=== PATIENT | female | born 1985 | race Caucasian/White ===

== ENCOUNTER 2022-02-27 08:01 | Outpatient (CLI) | payer OTHER, SELFPAY ==
[2022-02-27 08:37] LABS: Potassium 4.4 mmol/L (3.4-5.0)
[2022-02-27 08:39] LABS: Anion Gap 13 mmol/L (8-16); Blood Urea Nitrogen 11 mg/dL (7-17); Carbon Dioxide 24 mmol/L (22-30); Chloride 102 mmol/L (98-107); Estimated Glomerular Filt Rate > 60; Glucose 135 mg/dL (65-110); Sodium 139 mmol/L (137-145)
== END 2022-02-27 08:02 | disposition home or self-care (01) ==
LOC: ANHSURGERY 08:08
PROVIDERS: Anesthesiology; PCP Nurse Practitioner Family; Visit Provider Obstetrics & Gynecology
DX: E11.9 Type 2 diabetes mellitus without complications (principal); Z01.818 Encounter for other preprocedural examination
CPT/HCPCS: 36415; 80048

== ENCOUNTER 2022-03-02 02:46 | Day surgery (SDC) | payer OTHER, SELFPAY ==
--- NOTE | 2022-02-23 14:32 | PC.NURSE ---
Report to the Outpatient Waiting Room, entrance under the green pavilion located off [facility], at time _0930_ on date _03/02/22__. Planned Procedure Time: _11:30_. Time changes happen often and if your time is changed the preop area will call you the afternoon before. - You and your visitor will be asked to self-screen and do not enter if you have any COVID symptoms. - We encourage only one visitor and NO visitors under age 16 are allowed at this time. Your visitor will receive communication by the phone number that is given day of service. - The patient visitor is requested to social distance or may leave the building when not with patient due to restrictions. - A mask is required within the hospital. Patients may have clear liquids (water, carbonated beverages, clear teas, apple juice) until 3 hours prior to surgery with a maximum of 20 ounces. (stop by 8:30 am) - No food from midnight until time of surgery - Infants may have breast milk until 4 hours before surgery, formula 6 hours prior to surgery. - Children will be allowed to drink immediately following surgery. If applicable, please bring a bottle or sippy cup to assist with drinking. Juice, water, soda, and popsicles are readily available. For infants on formula, please bring formula the day of surgery. Pacifiers are allowed. Take the following medications with a SIP of water the morning of surgery: _none Medications to discontinue per physician __supplements 3 days prior Date to take last dose Please no make-up, nail thai, hairspray, perfume, deodorant, or body powder the day of surgery. No jewelry (including any body piercings) or valuables the day of surgery, leave them at home. Please take a shower or bath the night before, or the morning of, surgery with an antibacterial soap. Wear comfortable, loose fitting clothing. Children are encouraged to wear pajamas. - Jewelry must be removed prior to entering the operating room. Rings and piercings that are not removed may be cut off. - The hospital will not accept responsibility for valuables. - Please leave all valuables, including medications, at home the day of surgery. If you are going home after surgery, a licensed pile driver operator helper must drive you home. - NO public transportation without another adult. - We recommend that an adult stay with you for 24 hours following discharge. - We also recommend that you do not drive, make important decision, drink alcoholic beverages, or take any drugs that were not prescribed by your health care provider for at least 24 hours after your discharge time. For Pediatric surgeries, we recommend two adults accompany the child home. Follow any additional instructions given to you from your surgeon. If you or anyone in your household have experienced Covid symptoms in the past week, please notify your surgeon or the nurse liaison at the phone number below for possible testing. Telephone instructions given to _patient__and asked if any additional questions and then verbalized understanding. Patient advised to call surgeon office or pre surgery nurse liaison [phone] if any additional questions.
[2022-02-23 14:52] VITALS: BMI 35.9
--- NOTE | 2022-03-01 08:23 | P.HP_ITS ---
H&P: HPI History of Present Illness Date/Time: 03/01/22 08:23 Chief Complaint: Severe cervical dysplasia Narrative: Sienna is a 36yo [id number], LMP 02/04/22 who presented as a new patient in clinic for colpo. She has a HGSIL/HPV + pap. Colpo was performed and showed PHOENIX 3 on multiple ectocervical biopsies as well as on the ECC. She reports her cycles are very irregular and have been for the last couple years since having her tubes tied. She reports having a pap smear in 2019 and thinks it was normal, but then never followed up with Dr. Sood as she was in [place] [facility]. Review of Systems Review of Systems: All systems reviewed & are unremarkable except as noted in HPI and below PMFSH Past Medical History Medical History Ovarian cyst Pulmonary embolism Recent surgical procedure on lower extremity 13 surgeries Surgical History Surgical History History of tubal ligation Family History Family History Other Hypertension Thyroid disease Social History Social History Smoking status: Never smoker Alcohol intake: never Substance use: never Substance use type: does not use Gender identity (if verbalized by the patient): Female Spiritual care concerns: No Meds Home Medications and Allergies Home Medications Medication Instructions Recorded Confirmed Type metformin 500 mg tablet 500 mg PO DAILY 02/05/22 02/23/22 History Allergies Allergy/AdvReac Type Severity Reaction Status Date / Time azithromycin Allergy Intermediate body aches Verified 02/23/22 14:19 and nodules albuterol AdvReac Mild Other Verified 02/23/22 14:46 Exam Const: General: cooperative, comfortable, no acute distress and obese Resp: Effort & Inspection: normal respiratory effort Cardio: Rate: regular rate GI: Inspection: normal to inspection GI Palp: No abdominal tenderness and Yes Soft to palpation : Other: deferred to OR Skin: General skin exam: normal color Neuro: General: patient oriented x3 Extrem: General: normal to inspection Psych: Appearance: grossly normal Affect: normal affect Attitude: cooperative Assessment and Plan Assessment and plan (1) Cervical intraepithelial neoplasia grade III with severe dysplasia: Code(s): D06.9 - Carcinoma in situ of cervix, unspecified Status: Acute Plan - Proceed with LEEP, top hat, and ECC due to PHOENIX 3 noted on biopsies obtained at 10, 11, 1 o'clock and ECC - Risks and benefits explained in detail
--- NOTE | 2022-03-02 06:55 | WPDHPUPDATE1 ---
History and Physical Update Update Date/Time: 03/02/22 06:55 History and Physical has been reviewed, including an updated exam of the patient. There are NO changes in the patient's condition. Risks, benefits, and alternatives have been discussed and questions answered. Patient agrees to proceed with procedure.
[2022-03-02 09:41] VITALS: BP 138/96; PULSE 91; RESP 18; TEMP 36.3; O2SAT 98
[2022-03-02 10:21] LABS: Glucose Point of Care 118 mg/dl (65-105)
[2022-03-02] MEDS: ACETAMINOPHEN 500 MG TABLET 1000 MG PO (10:30)
[2022-03-02] MEDS: LACTATED RINGERS 1,000 ML 30 ML IV CONT (10:31)
--- NOTE | 2022-03-02 10:49 | P.PNAN_ITS ---
Anes - Initial Pre Proc Eval Procedure: Operation Date: 03/02/22 11:30 Proposed Procedures p Loop Electrical Excision Procedure with Top Hat, Endocervical Curettage - Mary Jo Bhatia MD Date/Time: 03/02/22 10:49 Surgeon: Mary Jo Bhatia MD Pre Op Diagnosis: cervical dysplasia Patient Data Age: 36 Gender: F Height: 1.52 m Weight: 86.2 kg Last Vital Signs Temp 36.3 C L 03/02/22 09:41 Pulse 91 03/02/22 09:41 Resp 18 03/02/22 09:41 BP 138/96 H 03/02/22 09:41 Pulse Ox 98 03/02/22 09:41 O2 Del Method Room Air 03/02/22 09:41 Allergies Allergy/AdvReac Type Severity Reaction Status Date / Time azithromycin Allergy Intermediate body aches Verified 03/02/22 09:38 and nodules albuterol AdvReac Mild Other Verified 03/02/22 09:38 Home Medications Medication Instructions Recorded Confirmed Type metformin 500 mg tablet 500 mg PO DAILY 02/05/22 03/02/22 History Laboratory Tests 03/02/22 10:16 POC Capillary Glucose 118 mg/dl H mg/dl (65-105) Patient hx anesthesia problems: none Family hx anesthesia problems: none Results Review: All pre-operative results and documents have been reviewed as part of the pre- operative evaluation. [facility] Past Medical History Medical History Diabetes Ovarian cyst Pulmonary embolism Recent surgical procedure on lower extremity 13 surgeries Surgical History Surgical History History of tubal ligation Family History Family History Other Hypertension Thyroid disease Social History Social History Smoking status: Never smoker Alcohol intake: never Substance use: never Substance use type: does not use Living arrangements: with family Gender identity (if verbalized by the patient): Female Spiritual care concerns: No Anes - Eval Final PreProcedure Day of Procedure 03/02/22 10:49 Heart: regular rate and rhythm Lungs: decreased breath sounds Airway: Mallampati scale class II Neurological: alert and oriented Last oral intake: >/= 8 hours ASA classification: III Emergent: no Anesthetic plan: proceed Anesthesia type and monitoring: general GIVS and standard monitoring Results Review: All pre-operative results and documents have been reviewed as part of the pre- operative evaluation. Informed Consent: The patient's anesthetic plan and its attendant risks and benefits were discussed with the patient/family/POA. Questions were solicited and answers provided to the satisfaction of the patient/family/POA.
[2022-03-02] MEDS: IODINE/POTASSIUM IODIDE 8 ML SOLUTION TOPICAL (11:51)
[2022-03-02] MEDS: LIDO 2%/EPINEPHRINE 1:100,000 50 ML VIAL 10 ML INFILTRATE (11:51)
[2022-03-02] MEDS: FERRIC SUBSULFATE 8 ML SOLUTION WITH APPLICATOR TOPICAL (11:51)
--- NOTE | 2022-03-02 12:40 | P.OP_ITS ---
Procedure Note - Detailed Date of Procedure 03/02/22 Pre-op Diagnosis Severe cervical dysplasia (PHOENIX 3) Post-op Diagnosis Same Procedure Performed LEEP, top hat, ECC Surgeon Mary Jo Bhatia MD Anesthesia MAC Findings Multiparous cervix with multiple nabothian cysts (ruptured with thick mucus noted). Stay sutures placed at beginning of procedure and 10cc lidocaine with epi injected into the cervix. Lugols applied and no uptake noted from 10- 1o'clock. Top hat split in half so each piece sent separately and marked accordingly. Monsel's solution applied at end of case. Good hemostasis at end of case. Description of Procedure Sienna was taken to the operating room where she was placed under sedation. She was then prepped and draped in the usual sterile fashion in the dorsal lithotomy position with her legs in low Grey stirrups. A time-out was perform ed and no preoperative antibiotics were indicated. A coated speculum was then placed within the vagina where the cervix was easily identified. The cervix was infiltrated using approximately 10 cc of 2% lidocaine with epinephrine. When infiltrating the cervix multiple nabothian cysts were noted and ruptured with thick mucus discharge. Stay sutures were then placed bilaterally using 2-0 Vicryl without complications. The LEEP was performed without complications and marked with a silk suture at 12:00 o'clock. The top hat was then performed. The top hat split into 2 pieces therefore each piece was marked at 12 and 6:00 o'clock respectively. An ECC was then collected. Using the roller ball, the LEEP and top hat beds were made hemostatic using Bovie cautery. Good hemostasis was noted. Monsel's solution was then applied in the LEEP bed for further hemostasis. All instruments were removed from the vagina. Sponge, lap, instrument, and needle counts were correct at the end of procedure. The patient was awoken from anesthesia and taken to recovery in a stable condition with plans of same-day discharge home. Estimated Blood Loss 15 IV Fluids 800 Pathology Yes (Leep (stitch @ 12), top hat x2 (stitch placed at 12 & 6 o'clock -- specimen split in half), ECC) Condition Stable Disposition Same day [facility] Billing Surgery - Charge Forward: Surgery Billing
[2022-03-02 12:44] VITALS: BP 116/69; PULSE 88; RESP 12; O2SAT 100
[2022-03-02 13:07] LABS: Glucose Point of Care 82 mg/dl (65-105)
[2022-03-02 13:10] VITALS: BP 121/82; PULSE 76; RESP 12; O2SAT 100
[2022-03-02 13:40] VITALS: BP 112/84; PULSE 73; RESP 12; O2SAT 100
[2022-03-02 14:02] VITALS: BP 132/90; PULSE 86; RESP 12
== END 2022-03-02 14:05 | disposition home or self-care (01) ==
PROVIDERS: PCP Nurse Practitioner Family; Visit Provider Obstetrics & Gynecology
PROC: 0UBC7ZZ Excision of Cervix, Via Natural or Artificial Opening (ICD-10-PCS; CPT 57522; principal; 2022-03-02 11:30)
DX: D06.1 Carcinoma in situ of exocervix (principal); N88.8 Other specified noninflammatory disorders of cervix uteri; E11.9 Type 2 diabetes mellitus without complications; Z79.84 Long term (current) use of oral hypoglycemic drugs
CPT/HCPCS: 57522; 82948; 88305; 88307; A9270; J2250; J2704; J3010; J7120

== ENCOUNTER 2022-07-07 09:59 | Outpatient (CLI) | payer OTHER, SELFPAY ==
[2022-07-07 11:21] LABS: Hepatitis B Surface Antigen Negative (Negative)
[2022-07-07 11:24] LABS: HIV 1/2 Ab P24 Ag Result Negative (Negative)
[2022-07-07 11:27] LABS: HAV RESULT Negative (Negative); Hepatitis B Core IgM Result Negative (Negative)
[2022-07-07 11:38] LABS: Hepatitis C Virus Antibody Negative (Negative)
[2022-07-08 10:05] LABS: Rapid Plasma Reagin Non-Reactive (NonReactive)
== END 2022-07-07 10:00 | disposition home or self-care (01) ==
LOC: ANHLAB 09:59
PROVIDERS: PCP Nurse Practitioner Family; Visit Provider Student in an Organized Health Care Education/Training Program
DX: Z11.3 Encounter for screening for infections with a predominantly sexual mode of transmission (principal)
CPT/HCPCS: 36415; 80074; 86592; 86695; 86696; 86703; G0432

== ENCOUNTER 2022-07-23 13:22 | Outpatient (CLI) | payer OTHER, SELFPAY ==
[2022-07-23 13:42] LABS: Hematocrit 40.8 % (37.0-47.0); Hemoglobin 13.3 g/dL (12.0-15.0)
[2022-07-23 13:49] LABS: Anion Gap 6 mmol/L (8-16); Blood Urea Nitrogen 11 mg/dL (7-17); Calcium 8.9 mg/dL (8.4-10.2); Carbon Dioxide 28 mmol/L (22-30); Chloride 104 mmol/L (98-107); Estimated Glomerular Filt Rate > 60; Glucose 95 mg/dL (65-110); Potassium 4.1 mmol/L (3.4-5.0); Sodium 138 mmol/L (137-145)
== END 2022-07-23 13:23 | disposition home or self-care (01) ==
LOC: ANHSURGERY 13:26
PROVIDERS: Anesthesiology; PCP Nurse Practitioner Family; Visit Provider Student in an Organized Health Care Education/Training Program
DX: N93.9 Abnormal uterine and vaginal bleeding, unspecified (principal); E11.9 Type 2 diabetes mellitus without complications; Z01.818 Encounter for other preprocedural examination
CPT/HCPCS: 36415; 80048; 85014; 85018

== ENCOUNTER 2022-07-30 01:23 | Day surgery (SDC) | payer OTHER, SELFPAY ==
[2022-07-22 14:50] VITALS: BMI 37.8
--- NOTE | 2022-07-22 14:55 | PC.NURSE ---
Report to the Outpatient Waiting Room, entrance under the green pavilion located off [facility], at time 1:00 on date 07/30/22. Planned Procedure Time: 3:00. Time changes happen often and if your time is changed the preop area will call you the afternoon before. - You and your visitor will be asked to self-screen and do not enter if you have any COVID symptoms. - Only one visitor is requested with a max of two and NO children visitors are allowed at this time. - The patient visitor may be requested to leave or wait in car when not with patient due to distancing restrictions. - A mask is optional within the hospital at this time. Patients may have clear liquids (water, carbonated beverages, clear teas, apple juice) until 3 hours prior to surgery with a maximum of 20 ounces. - No food from midnight until time of surgery Take the following medications with a SIP of water the morning of surgery: NONE DO NOT STOP ANY OF YOUR OTHER PRESCRIPTION MEDICATIONS PRIOR TO SURGERY EXCEPT THE FOLLOWING Medications to discontinue per physician: N/A Date to take last dose: N/A Please no make-up, nail hong konger, hairspray, perfume, deodorant, or body powder the day of surgery. No jewelry (including any body piercings) or valuables the day of surgery, leave them at home. Please take a shower or bath the night before, or the morning of, surgery with an antibacterial soap. Wear comfortable, loose fitting clothing. - Jewelry must be removed prior to entering the operating room. Rings and piercings that are not removed may be cut off. - The hospital will not accept responsibility for valuables. - Please leave all valuables, including medications, at home the day of surgery. If you are going home after surgery, a licensed commercial relief driver must drive you home. - NO public transportation without another adult if you receive anesthesia. - We recommend that an adult stay with you for 24 hours following discharge. - We also recommend that you do not drive, make important decision, drink alcoholic beverages, or take any drugs that were not prescribed by your health care provider for at least 24 hours after your discharge time. Follow any additional instructions given to you from your surgeon. If you or anyone in your household have experienced Covid symptoms in the past week, please notify your surgeon or the nurse liaison at the phone number below for possible testing. Telephone instructions given to PT - LOKI POLK and asked if any additional questions and then verbalized understanding. Patient advised to call surgeon office or pre surgery nurse liaison [phone] if any additional questions.
--- NOTE | 2022-07-30 08:36 | PM.IMHP ---
H&P: HPI History of Present Illness Date/Time: 07/30/22 08:36 Chief Complaint: abnormal uterine bleeding Narrative: 36-year-old female who presents for hysteroscopy, D&C, endometrial ablation for abnormal uterine bleeding. Patient has persistent heavy prolonged bleeding despite progesterone only contraceptives. Patient is status post tubal ligation. She declined any other hormonal contraceptives. Patient has history of PE so was not a candidate for estrogen. Patient elects for surgical management. Review of Systems Cardiovascular: Cardiovascular: Denies chest pain, Denies leg edema, Denies palpitations, Denies dyspnea and Denies dyspnea on exertion Respiratory: Respiratory: Denies cough, Denies dyspnea and Denies dyspnea on exertion Gastrointestinal: Gastrointestinal: Denies abdominal pain, Denies constipation, Denies diarrhea, Denies nausea and Denies vomiting Genitourinary: Genitourinary: Denies hematuria, Denies urinary frequency, Denies dysuria, Denies pelvic pain, Denies urinary incontinence and Denies vaginal discharge Neurologic: Reports system reviewed and no additional complaints, except as documented Psychiatric: Psychiatric: Reports no additional psychiatric complaints Endocrine: Endocrine: Denies palpitations [facility] Past Medical History Medical History (Updated 07/10/22 @ 10:23 by Mariama Merritt MA) Diabetes 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 Gonorrhea Ovarian cyst Pulmonary embolism Recent surgical procedure on lower extremity 13 surgeries Screen for STD (sexually transmitted disease) Surgical History Surgical History H/O LEEP PHOENIX 3 all margins are clear History of tubal ligation (03/02/22) Family History Family History Other Hypertension Thyroid disease Social History Social History Smoking status: Never smoker Alcohol intake: never Substance use: never Substance use type: does not use Living arrangements: with family Occupation/Education: occupation Gender identity (if verbalized by the patient): Female Spiritual care concerns: No Meds Home Medications and Allergies Home Medications Medication Instructions Recorded Confirmed Type metformin 500 mg tablet 500 mg PO DAILY 02/05/22 07/22/22 History norethindrone (contraceptive) 0.35 0.35 mg PO DAILY #84 tabs 06/18/22 07/22/22 Rx mg tablet dulaglutide 0.75 mg/0.5 mL 0.75 mg subcut WEEKLY 07/06/22 07/22/22 History subcutaneous pen injector (Trulicity) Allergies Allergy/AdvReac Type Severity Reaction Status Date / Time azithromycin Allergy Intermediate body aches Verified 07/22/22 14:49 and nodules albuterol AdvReac Mild Other Verified 07/22/22 14:49 Exam Const: General: no acute distress Eyes: EOM: EOMs intact bilaterally Neck: Neck: supple Thyroid: thyroid normal Chest: Breast/axilla inspection: normal inspection of the breasts Breast/axilla palpation: normal palpation of the breasts, normal palpation of the axillae and no axillary lymphadenopathy Resp: Effort & Inspection: normal respiratory effort Auscultation: clear to auscultation bilaterally Cardio: Rate: regular rate Rhythm: regular rhythm GI: Inspection: non-distended GI Palp: Yes Soft to palpation, No Tenderness to palpation present (GI) and No Guarding due to palpation present (GI) Auscultation: normal bowel sounds : General: No bladder normal to palpation External Female Exam: normal external appearance Speculum Exam - Vagina: normal vaginal discharge and No vaginal bleeding Speculum Exam - Cervix: nontender Bimanual exam- vagina & uterus: No bladder normal to palpation and No Cervical tenderness present OB/external & speculum: No vaginal bleeding Skin: General skin exam: normal color and no rashes or lesions noted Neuro: Cogniti
--- NOTE | 2022-07-30 08:37 | WPDHPUPDATE1 ---
History and Physical Update Update Date/Time: 07/30/22 08:37 History and Physical has been reviewed, including an updated exam of the patient. There are NO changes in the patient's condition. Risks, benefits, and alternatives have been discussed and questions answered. Patient agrees to proceed with procedure.
[2022-07-30 12:30] VITALS: BP 127/88; PULSE 86; RESP 16; TEMP 36.7; O2SAT 100
[2022-07-30] MEDS: ACETAMINOPHEN 500 MG TABLET 1000 MG PO (12:30)
[2022-07-30] MEDS: LACTATED RINGERS 1,000 ML 30 ML IV CONT (12:30)
--- NOTE | 2022-07-30 12:43 | P.PNAN_ITS ---
Anes - Initial Pre Proc Eval Procedure: Operation Date: 07/30/22 14:00 Proposed Procedures p Hysteroscopy Dilation and Curettage With Akilah Endometrial Ablation - Slyvain Bar MD Date/Time: 07/30/22 12:43 Surgeon: Sylvain Bar MD Pre Op Diagnosis: abnormal uterine bleeding Patient Data Age: 36 Gender: F Height: 1.52 m Weight: 88 kg Allergies Allergy/AdvReac Type Severity Reaction Status Date / Time azithromycin Allergy Intermediate body aches Verified 07/22/22 14:49 and nodules albuterol AdvReac Mild Other Verified 07/22/22 14:49 Home Medications Medication Instructions Recorded Confirmed Type metformin 500 mg tablet 500 mg PO DAILY 02/05/22 07/22/22 History norethindrone (contraceptive) 0.35 0.35 mg PO DAILY #84 tabs 06/18/22 07/22/22 Rx mg tablet dulaglutide 0.75 mg/0.5 mL 0.75 mg subcut WEEKLY 07/06/22 07/22/22 History subcutaneous pen injector (Trulicity) Patient hx anesthesia problems: none Family hx anesthesia problems: none Results Review: All pre-operative results and documents have been reviewed as part of the pre- operative evaluation. 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 Gonorrhea Ovarian cyst Pulmonary embolism Recent surgical procedure on lower extremity 13 surgeries Screen for STD (sexually transmitted disease) Surgical History Surgical History H/O LEEP PHOENIX 3 all margins are clear History of tubal ligation (03/02/22) Family History Family History Other Hypertension Thyroid disease Social History Social History Smoking status: Never smoker Alcohol intake: never Substance use: never Substance use type: does not use Living arrangements: with family Occupation/Education: occupation Gender identity (if verbalized by the patient): Female Spiritual care concerns: No Anes - Eval Final PreProcedure Day of Procedure 07/30/22 12:43 Patient weight: obese Heart: regular rate and rhythm Lungs: clear to auscultation Airway: Mallampati scale class III Neurological: alert and oriented Last oral intake: >/= 8 hours ASA classification: III Emergent: no Anesthetic plan: proceed Anesthesia type and monitoring: general GIVS and standard monitoring Results Review: All pre-operative results and documents have been reviewed as part of the pre- operative evaluation. Informed Consent: The patient's anesthetic plan and its attendant risks and benefits were discussed with the patient/family/POA. Questions were solicited and answers provided to the satisfaction of the patient/family/POA.
[2022-07-30 13:06] LABS: Glucose Point of Care 84 mg/dl (65-105)
[2022-07-30] MEDS: LIDOCAINE HCL 1% LOCAL INJ 20 ML VIAL 10 ML INFILTRATE (13:34)
--- NOTE | 2022-07-30 13:46 | W.PM.PROC2 ---
Procedure Note - Detailed Date of Procedure 07/30/22 Pre-op Diagnosis abnormal uterine bleeding Post-op Diagnosis Same Procedure Performed paracervical block hysteroscopy dilation & curettage endometrial ablation Surgeon Sylvain Bar MD Anesthesia General Indications abnormal uterine bleeding Findings normal appearing intrauterine cavity. Normal tubal ostia bilaterally Description of Procedure Sienna Brenner presents for the above procedure for AUB. She was counseled as to the indications, risks, benefits, and alternatives to surgery, with the risks including bleeding, infection, damage to surrounding organs, VTE, and complications of anesthesia. Her verbal and written consent was obtained. PROCEDURE: The patient was taken to the OR and general anesthesia induced. She was prepped and draped in Grey stirrups with support of the back and bilateral lower extremities. I/O catheterization performed of the bladder. The above findings were noted. Infiltration with 1% lidocaine at the 3 and 9 o'clock cervical positions was performed. A single tooth tenaculum was placed on the anterior lip of the cervix. The uterus sounded to 8 cm. The cervix was dilated with sequential Delicia dilators. Hysteroscopy, using a normal saline medium, was performed and showed the above findings. Sharp uterine curettage was then performed and tissue placed on Telfa. The Akilah device was set to a depth of 5.5 cm. The device was inserted into the uterus and deployed. Good fit was reassured by the device indicator. The cervical balloon was insufflated to ensure a good seal. Uterine integrity test was performed by the Akilah device and was successful. The device was then activated. The entire ablation procedure lasted 120 seconds. The cervical balloon was desufflated and the device was removed from the uterus. The hysteroscope was re-introduced to ensure adequate tissue ablation. The tenaculum was removed and hemostasis was observed. The patient tolerated the procedure well. Sponge, lap, and needle counts were correct. The patient was taken to the recovery room in stable condition. Estimated Blood Loss 5 Urine Output 25 Drains No Packing No Pathology Yes (endometrial curettings ) Complications No immediate complications Condition Stable Disposition PACU [facility] Billing Surgery - Charge Forward: Surgery Billing
[2022-07-30 13:49] VITALS: BP 109/75; PULSE 91; RESP 16; O2SAT 100
[2022-07-30 14:15] VITALS: BP 109/64; PULSE 91; RESP 16; O2SAT 100
[2022-07-30 14:17] LABS: Glucose Point of Care 65 mg/dl (65-105)
--- NOTE | 2022-07-30 14:22 | SUR.PHASEII ---
1415-DR. JAQUEZ AWARE OF POC GLUCOSE, CONTINUE TO GIVE PT APPLE JUICE AND REPEAT POC GLUCOSE.
[2022-07-30 14:45] VITALS: BP 137/89; PULSE 73; RESP 16
[2022-07-30 14:48] LABS: Glucose Point of Care 76 mg/dl (65-105)
[2022-07-30 15:13] VITALS: BP 134/88; PULSE 90; RESP 16
== END 2022-07-30 15:15 | disposition home or self-care (01) ==
PROVIDERS: PCP Nurse Practitioner Family; Visit Provider Student in an Organized Health Care Education/Training Program
PROC: 0U5B8ZZ Destruction of Endometrium, Via Natural or Artificial Opening Endoscopic (ICD-10-PCS; CPT 58563; principal; 2022-07-30 14:00)
DX: N92.0 Excessive and frequent menstruation with regular cycle (principal); Z98.51 Tubal ligation status; E11.9 Type 2 diabetes mellitus without complications; Z85.41 Personal history of malignant neoplasm of cervix uteri; Z86.711 Personal history of pulmonary embolism; Z79.84 Long term (current) use of oral hypoglycemic drugs; Z79.899 Other long term (current) drug therapy; E66.9 Obesity, unspecified; Z68.37 Body mass index [BMI] 37.0-37.9, adult
CPT/HCPCS: 58563; 82948; 88305; A9270; J1885; J2250; J2704; J3010; J7120